=== PATIENT | female | born 2000 | race Caucasian/White ===

== ENCOUNTER 2023-01-04 18:03 | Emergency (ER) | payer OTHER ==
[2023-01-04 18:27] VITALS: BP 110/73; PULSE 81; RESP 18; TEMP 98.3; BMI 26.2
[2023-01-04] MEDS ORDERED: PANTOPRAZOLE SODIUM 40 MG VIAL IVPUSH ONE (20:39)
[2023-01-04] MEDS ORDERED: MAG HYDROX/AL HYDROX/SIMETH -MYLANTA- ORAL SUSPENSION PO ONE (20:39)
[2023-01-04] MEDS ORDERED: FAMOTIDINE 20 MG TABLET PO ONE (20:39)
[2023-01-04] MEDS ORDERED: MAG HYDROX/AL HYDROX/SIMETH 30 ML UNIT-DOSE CUP ONE (20:40)
[2023-01-04] MEDS ORDERED: FAMOTIDINE 20 MG TABLET ONE (20:40)
[2023-01-04] MEDS ORDERED: PANTOPRAZOLE SODIUM 40 MG/100 ML BAG IVPB ONE (20:44)
[2023-01-04 20:53] LABS: POTASSIUM 5.5 mmol/L (3.5-5.1)
[2023-01-04 20:56] LABS: ALBUMIN 3.8 g/dl (3.4-5.0); CALCIUM 9.4 mg/dL (8.5-10.1)
[2023-01-04 20:57] LABS: BLOOD UREA NITROGEN 11.3 mg/dL (7-18)
[2023-01-04 20:59] LABS: BASO % 0.6 % (0-2.0); CREATININE 0.6 mg/dL (0.55-1.3); EOS % 2.6 % (0-4.5); HEMATOCRIT 35.9 % (32.4-45.2); LYMPH % 31.1 % (8-40); MCH 27.8 pg (25.7-33.7); MCHC 33.4 g/dl (32.0-36.0); MEAN CELL VOLUME 83.2 fl (80-96); MEAN PLT VOLUME 12.1 fl (7.5-11.1); MONO % 8.1 % (3.8-10.2); NEUT % 57.6 % (42.8-82.8); PLATELET COUNT 264 10^3/uL (134-434); RBC 4.31 M/mm3 (3.60-5.2); RDW 14.4 % (11.6-15.6); WHITE BLOOD COUNT 8.4 K/mm3 (4.0-10.0)
[2023-01-04 21:01] LABS: BILIRUBIN,TOTAL 0.3 mg/dL (0.2-1); TOT PROT 8.7 g/dl (6.4-8.2)
== END 2023-01-04 21:57 | disposition home or self-care (01) ==
LOC: JER 18:03
DX: R10.13 Epigastric pain (principal); R12 Heartburn; K29.00 Acute gastritis without bleeding
CPT/HCPCS: 36415; 76705-TC; 80053; 83690; 84703; 85025; 99284-25